=== PATIENT | male | born 1990 | race Caucasian/White ===

== ENCOUNTER 2020-07-24 08:19 | Emergency (ER) | payer BC, OTHER ==
[2020-07-24] MEDS ORDERED: Sodium Chloride 0.9% 10 ML Syringe FLUSH PRN (08:41)
[2020-07-24] MEDS ORDERED: Sodium Chloride 0.9% 2.5 ML Syringe FLUSH PRN ×2 (08:41)
[2020-07-24] MEDS ORDERED: Famotidine 20 MG/2 ML SDV IVPUSH ONE (08:41)
[2020-07-24] MEDS ORDERED: Sodium Chloride 0.9% 1,000 ML IV ONE (08:41)
[2020-07-24] MEDS ORDERED: Ondansetron 4 MG/2 ML SDV IVPUSH ONE (08:41)
--- NOTE | 2020-07-24 08:44 | EDM.PDOC ---
ED HPI GENERAL MEDICAL PROBLEM - General Chief Complaint: Abdominal Pain Stated Complaint: STOMACH PAIN Time Seen by Provider: 07/24/20 08:27 - History of Present Illness INITIAL COMMENTS - FREE TEXT/NARRATIVE: History of present illness: Patient presents with generalized abdominal discomfort fatigue and diarrhea for the past several days he had multiple mucousy and liquid bowel movements last night he denies any nausea or vomiting no fever no chills no cough no trouble breathing he denies any recent travel or recent antibiotic use he did have a vasectomy 7 days ago at a local surgery center. Review of systems: As per history of present illness and below otherwise all systems reviewed and negative. Past medical history: As per history of present illness and as reviewed below otherwise noncontributory. Surgical history: As per history of present illness and as reviewed below otherwise noncontributory. Social history: No reported history of drug or alcohol abuse. Family history: As per history of present illness and as reviewed below otherwise noncontributory. Physical exam: HEENT: Atraumatic, normocephalic, pupils reactive, negative for conjunctival pallor or scleral icterus, mucous membranes moist, throat clear, neck supple, nontender, trachea midline. Lungs: Clear to auscultation, breath sounds equal bilaterally, chest nontender. Heart: S1S2, regular, negative for clicks, rubs, or JVD. Abdomen: Soft, mild distention, mild diffuse tenderness without rebound or guarding. Negative for masses or hepatosplenomegaly. Negative for costovertebral tenderness. Pelvis: Stable nontender. Genitourinary: Deferred. Rectal: Deferred. Extremities: Atraumatic, negative for cords or calf pain. Neurovascular unremarkable. Neuro: Awake, alert, oriented. Cranial nerves II through XII unremarkable. Cerebellum unremarkable. Motor and sensory unremarkable throughout. Exam nonfocal. Diagnostics: [] Therapeutics: [] Impression: Patient have symptoms concerning for COVID disease will check for COVID will give fluids check abdominal labs give him some Zofran and Pepcid and reassess the patient. [] Plan: [] Definitive disposition and diagnosis as appropriate pending reevaluation and review of above. Right Upper Abdomen Pain Score (Numeric/FACES): 6 - Related Data Allergies Allergy/AdvReac Type Severity Reaction Status Date / Time No Known Allergies Allergy Verified 07/24/20 08:29 Home Meds: Home Meds Dicyclomine [Bentyl] 20 mg PO QIDACANDBED #30 tab 07/24/20 [Rx] Ondansetron [Zofran ODT] 4 mg PO Q6H PRN 5 Days #12 tab.dis 07/24/20 [Rx] metroNIDAZOLE [Flagyl] 500 mg PO TID #30 tablet 07/24/20 [Rx] Past Medical History Respiratory History: Reports: Asthma - Infectious Disease History Infectious Disease History: Reports: None - Past Surgical History Male Surgical History: Reports: Vasectomy Social & Family History - Family History Family Medical History: Noncontributory - Tobacco Use Smoking Status *Q: Never Smoker - Caffeine Use Caffeine Use: Reports: Soda - Recreational Drug Use Recreational Drug Use: No ED ROS GENERAL - Review of Systems Review Of Systems: See Below ED EXAM, GENERAL - Physical Exam Exam: See Below Course - Vital Signs Last Recorded V/S: Last Vital Signs Temp 35.9 C L 07/24/20 10:39 Pulse 58 L 07/24/20 10:39 Resp 13 07/24/20 10:39 BP 128/80 07/24/20 10:39 Pulse Ox 98 07/24/20 10:39 - Orders/Labs/Meds Orders: Active Orders 24 hr Category Date Time Status Sodium Chloride 0.9% [Saline Flush] Med 07/24/20 08:41 Active 10 ml FLUSH ASDIRECTED PRN Sodium Chloride 0.9% [Saline Flush] Med 07/24/20 08:41 Active 2.5 ml FLUSH ASDIRECTED PRN Sodium Chloride 0.9% [Saline Flush] Med 07/24/20 08:41 Active 2.5 ml FLUSH ASDIRECTED PRN Saline Lock Insert [OM.PC] Stat Oth 07/24/20 08:41 Ordered Medication Orders Sodium Chloride (Saline Flush) 2.5 ml FLUSH ASDIRECTED PRN PRN Reason: Keep Vein Open Last Admin: 07/24/20 08:49 Dose: 2.5 ml Documented by: VIALMEL Sodium Chloride (Saline Flush) 2.5 ml FLUSH ASDIRECTED PRN PRN Reason: Keep Vein Open Last Admin: 07/24/20 08:49 Dose: 2.5 ml Documented by: VIALMEL Sodium Chloride (Saline Flush) 10 ml FLUSH ASDIRECTED PRN PRN Reason: Keep Vein Open Last Admin: 07/24/20 08:49 Dose: 10 ml Documented by: CATHY Labs: Laboratory Tests 07/24/20 07/24/20 07/24/20 Range/Units 08:30 08:30 08:40 WBC 8.12 (4.0-11.0) K/uL RBC 5.24 (4.50-5.90) M/uL Hgb 15.6 (13.0-17.0) g/dL Hct 45.7 (38.0-50.0) % MCV 87.2 (80.0-98.0) fL MCH 29.8 (27.0-32.0) pg MCHC 34.1 (31.0-37.0) g/dL RDW Std Deviation 41.1 (28.0-62.0) fl RDW Coeff of Sola 13 (11.0-15.0) % Plt Count 183 (150-400) K/uL MPV 10.50 (7.40-12.00) fL Neut % (Auto) 77.4 (48.0-80.0) % Lymph % (Auto) 12.6 L (16.0-40.0) % [place] % (Auto) 8.9 (0.0-15.0) % Eos % (Auto) 1.0 (0.0-7.0) % Baso % (Auto) 0.1 (0.0-1.5) % Neut # (Auto) 6.3 H (1.4-5.7) K/uL Lymph # (Auto) 1.0 (0.6-2.4) K/uL [place] # (Auto) 0.7 (0.0-0.8) K/uL Eos # (Auto) 0.1 (0.0-0.7) K/uL Baso # (Auto) 0.0 (0.0-0.1) K/uL Nucleated RBC % 0.0 /100WBC Nucleated RBCs # 0 K/uL Sodium 139 (136-148) mmol/L Potassium 3.9 (3.5-5.1) mmol/L Chloride 103 (98-107) mmol/L Carbon Dioxide 27.5 (21.0-32.0) mmol/L BUN 13 (7.0-18.0) mg/dL Creatinine 1.2 (0.8-1.3) mg/dL Est Cr Clr Drug Dosing 88.38 mL/min Estimated GFR (MDRD) > 60.0 ml/min Glucose 92 (74-106) mg/dL Calcium 9.2 (8.5-10.1) mg/dL Total Bilirubin 0.5 (0.2-1.0) mg/dL AST 14 L (15-37) IU/L ALT 22 (14-63) IU/L Alkaline Phosphatase 72 (46-116) U/L Total Protein 7.6 (6.4-8.2) g/dL Albumin 4.0 (3.4-5.0) g/dL Globulin 3.6 (2.6-4.0) g/dL Albumin/Globulin Ratio 1.1 (0.9-1.6) Lipase 120 (73-393) U/L Urine Color YELLOW Urine Appearance CLEAR Urine pH 6.0 (5.0-8.0) Ur Specific [place] 1.025 (1.001-1.035) Urine Protein NEGATIVE (NEGATIVE) mg/dL Urine Glucose (UA) NEGATIVE (NEGATIVE) mg/dL Urine Ketones 15 H (NEGATIVE) mg/dL Urine Occult Blood TRACE-INTACT H (NEGATIVE) Urine Nitrite NEGATIVE (NEGATIVE) Urine Bilirubin SMALL H (NEGATIVE) Urine Urobilinogen 0.2 (<2.0) EU/dL Ur Leukocyte Esterase NEGATIVE (NEGATIVE) Urine RBC 0-2 (0-2/HPF) Urine WBC 0-1 (0-5/HPF) Ur Epithelial Cells RARE (NONE-FEW) Urine Bacteria RARE (NEGATIVE) COVID-19 (GEORGE) (NEGATIVE) 07/24/20 Range/Units 08:55 WBC (4.0-11.0) K/uL RBC (4.50-5.90) M/uL Hgb (13.0-17.0) g/dL Hct (38.0-50.0) % MCV (80.0-98.0) fL MCH (27.0-32.0) pg MCHC (31.0-37.0) g/dL RDW Std Deviation (28.0-62.0) fl RDW Coeff of Sola (11.0-15.0) % Plt Count (150-400) K/uL MPV (7.40-12.00) fL Neut % (Auto) (48.0-80.0) % Lymph % (Auto) (16.0-40.0) % [place] % (Auto) (0.0-15.0) % Eos % (Auto) (0.0-7.0) % Baso % (Auto) (0.0-1.5) % Neut # (Auto) (1.4-5.7) K/uL Lymph # (Auto) (0.6-2.4) K/uL [place] # (Auto) (0.0-0.8) K/uL Eos # (Auto) (0.0-0.7) K/uL Baso # (Auto) (0.0-0.1) K/uL Nucleated RBC % /100WBC Nucleated RBCs # K/uL Sodium (136-148) mmol/L Potassium (3.5-5.1) mmol/L Chloride (98-107) mmol/L Carbon Dioxide (21.0-32.0) mmol/L BUN (7.0-18.0) mg/dL Creatinine (0.8-1.3) mg/dL Est Cr Clr Drug Dosing mL/min Estimated GFR (MDRD) ml/min Glucose (74-106) mg/dL Calcium (8.5-10.1) mg/dL Total Bilirubin (0.2-1.0) mg/dL AST (15-37) IU/L ALT (14-63) IU/L Alkaline Phosphatase (46-116) U/L Total Protein (6.4-8.2) g/dL Albumin (3.4-5.0) g/dL Globulin (2.6-4.0) g/dL Albumin/Globulin Ratio (0.9-1.6) Lipase (73-393) U/L Urine Color Urine Appearance Urine pH (5.0-8.0) Ur Specific [place] (1.001-1.035) Urine Protein (NEGATIVE) mg/dL Urine Glucose (UA) (NEGATIVE) mg/dL Urine Ketones (NEGATIVE) mg/dL Urine Occult Blood (NEGATIVE) Urine Nitrite (NEGATIVE) Urine Bilirubin (NEGATIVE) Urine Urobilinogen (<2.0) EU/dL Ur Leukocyte Esterase (NEGATIVE) Urine RBC (0-2/HPF) Urine WBC (0-5/HPF) Ur Epithelial Cells (NONE-FEW) Urine Bacteria (NEGATIVE) COVID-19 (GEORGE) NEGATIVE (NEGATIVE) Meds: Medications Generic Name Dose Route Start Last Admin Trade Name Freq PRN Reason Stop Dose Admin Sodium Chloride 2.5 ml 07/24/20 08:41 07/24/20 08:49 Saline Flush FLUSH 2.5 ml ASDIRECTED PRN Administration Keep Vein Open Sodium Chloride 2.5 ml 07/24/20 08:41 07/24/20 08:49 Saline Flush FLUSH 2.5 ml ASDIRECTED PRN Administration Keep Vein Open Sodium Chloride 10 ml 07/24/20 08:41 07/24/20 08:49 Saline Flush FLUSH 10 ml ASDIRECTED PRN Administration Keep Vein Open Discontinued Medications Generic Name Dose Route Start Last Admin Trade Name Muna PRN Reason Stop Dose Admin Famotidine 20 mg 07/24/20 08:41 07/24/20 08:48 Pepcid IVPUSH 07/24/20 08:42 20 mg ONETIME ONE Administration Sodium Chloride 1,000 mls @ 999 mls/hr 07/24/20 08:41 07/24/20 08:48 Normal Saline IV 07/24/20 09:41 999 mls/hr BOLUS ONE Administration Ondansetron HCl 4 mg 07/24/20 08:41 07/24/20 08:48 Zofran IVPUSH 07/24/20 08:42 4 mg ONETIME ONE Administration Departure - Departure Time of Disposition: 10:49 Disposition: Home, Self-Care 01 Condition: Good Clinical Impression: Colitis - Discharge Information *PRESCRIPTION DRUG MONITORING PROGRAM REVIEWED*: Not Applicable *COPY OF PRESCRIPTION DRUG MONITORING REPORT IN PATIENT DERRICK: Not Applicable Prescriptions: Dicyclomine [Bentyl] 20 mg PO QIDACANDBED #30 tab metroNIDAZOLE [Flagyl] 500 mg PO TID #30 tablet Ondansetron [Zofran ODT] 4 mg PO Q6H PRN 5 Days #12 tab.dis PRN Reason: Nausea/Vomiting Instructions: Colitis Referrals: Cruzito Reynolds MD [Primary Care Provider] - Forms: ED Department Discharge Sepsis Event Note (ED) - Evaluation Sepsis Screening Result: No Definite Risk - Focused Exam Vital Signs: Vital Signs Temp Pulse Resp BP Pulse Ox 07/24/20 10:39 35.9 C L 58 L 13 128/80 98 07/24/20 09:32 60 12 136/78 99 07/24/20 08:30 36.4 C 67 14 142/89 H 99 - My Orders Last 24 Hours: My Active Orders 07/24/20 08:41 Sodium Chloride 0.9% [Saline Flush] 10 ml FLUSH ASDIRECTED PRN Sodium Chloride 0.9% [Saline Flush] 2.5 ml FLUSH ASDIRECTED PRN Sodium Chloride 0.9% [Saline Flush] 2.5 ml FLUSH ASDIRECTED PRN Saline Lock Insert [OM.PC] Stat - Assessment/Plan Last 24 Hours: My Active Orders 07/24/20 08:41 Sodium Chloride 0.9% [Saline Flush] 10 ml FLUSH ASDIRECTED PRN Sodium Chloride 0.9% [Saline Flush] 2.5 ml FLUSH ASDIRECTED PRN Sodium Chloride 0.9% [Saline Flush] 2.5 ml FLUSH ASDIRECTED PRN Saline Lock Insert [OM.PC] Stat
[2020-07-24 09:09] LABS: BLOOD UREA NITROGEN,BUN 13 mg/dL (7.0-18.0); CARBON DIOXIDE,CO2 27.5 mmol/L (21.0-32.0); CHLORIDE,CL 103 mmol/L (98-107); GLUCOSE RANDOM 92 mg/dL (74-106); LIPASE 120 U/L (73-393); POTASSIUM,K 3.9 mmol/L (3.5-5.1); SODIUM,NA 139 mmol/L (136-148)
--- NOTE | 2020-07-24 10:18 | CT ---
CT abdomen and pelvis Technique: Multiple axial sections were obtained from above the dome of the diaphragm inferiorly through the pubic symphysis. Intravenous contrast was utilized. No oral contrast has been given. Comparison: No prior abdominal imaging is available. Findings: Visualized lung bases show nothing acute. Liver shows minimal fat next to the ligamentum teres fissure which is a normal finding. Liver otherwise has a normal appearance. Spleen shows no discrete abnormality. Adrenal glands show no nodule. Kidneys show symmetric contrast enhancement without hydronephrosis or mass. Pancreas is within normal limits. Aorta shows no aneurysm. Gallbladder contains no calcified gallstones. No retroperitoneal adenopathy is seen. Diffuse bowel wall thickening seen throughout the colon. There is mild surrounding inflammatory change primarily around the right colon. Small amount of free fluid is seen within the pelvis. No pelvic adenopathy is seen. Appendix is seen which is normal in size. Bone window settings were reviewed which shows no acute osseous finding. Impression: 1. Diffuse bowel wall thickening throughout the colon compatible with diffuse colitis. Differential includes infection and inflammatory bowel disease. 2. No additional abnormality is appreciated on CT study of the abdomen and pelvis. Diagnostic code #5 This report was dictated in MDT
[2020-07-24] MEDS ORDERED: Iopamidol 755 Mg/ML 100 ML Bottle IVPUSH STA (11:01)
== END 2020-07-24 11:05 | disposition home or self-care (01) ==
LOC: MW.ED 08:19
DX: K52.9 Noninfective gastroenteritis and colitis, unspecified (principal); J45.909 Unspecified asthma, uncomplicated; Z20.828 Contact with and (suspected) exposure to other viral communicable diseases
CPT/HCPCS: 74177; 80053; 81001; 83690; 85025; 87635; 96361; 96374; 96375; 99284; J2405; J3490; J7030; Q9967; 99282; U0002

== ENCOUNTER 2021-07-14 10:03 | Emergency (ER) | payer BC ==
[2021-07-14] MEDS ORDERED: Ketorolac 15 MG/ML SDV IM ONE (10:12)
--- NOTE | 2021-07-14 10:49 | CR ---
INDICATION: Fall. TECHNIQUE: Lumbar spine 2 view. COMPARISON: None FINDINGS: Bones: Alignment is normal. No fractures or significant bone lesions. Joints: Disc spaces and facets are unremarkable. Soft tissues: Unremarkable. IMPRESSION: There is no fracture or malalignment in the lumbar spine. Preservation of normal lumbar lordosis. Dictated by Daryl Don MD @ 07/14/2021 10:47:[address] Daryl Don @ Jul 14 2021 10:47AM
--- NOTE | 2021-07-14 11:07 | CR ---
HISTORY: Ankle pain. COMPARISON: None. TECHNIQUE: Left ankle, 3 views. FINDINGS: There is mild widening of the ankle mortise, with a fracture deformity involving the anterior aspect of the tibia on the lateral projection. There is also fragmentation present about the medial malleolus. The posterior malleolus on the lateral projection appears intact. CT of the left ankle/hindfoot is suggested for further assessment. Boehler`s angle is preserved. Subtalar and talonavicular joints are within normal limits. No radiopaque foreign body. Mineralization is normal. IMPRESSION: 1. An intra-articular fracture deformity of the left distal tibia is suspected, with associated widening of the ankle mortise. 2. CT is suggested for further assessment. Dictated by Daryl Don MD @ 07/14/2021 11:07:[address] Daryl Don @ Jul 14 2021 11:07AM
--- NOTE | 2021-07-14 11:16 | CR ---
Indication: Pain after fall from roof. Technique: 3 views left foot Comparison: Ankle radiographs from the same day Findings: A few fracture fragments are noted at the anterior inferior aspect of the tibia which are better evaluated on recent ankle radiographs. There is a small ankle joint effusion. There are no additional fractures identified in the foot itself. The joint spaces in the foot are preserved and there are no significant degenerative changes. No radiopaque foreign body. Impression: 1. Few fracture fragments from the distal aspect of tibia are better evaluated on concurrently acquired ankle radiographs. See separate report. 2. No additional fracture identified in the left foot. Dictated by Aniceto Awad MD @ 07/14/2021 11:14:[address] Aniceto Awad @ Jul 14 2021 11:14AM
--- NOTE | 2021-07-14 11:18 | CR ---
Indication: Pain after fall from roof Technique: Three views of left tibia/fibula Comparison: Left foot and left ankle radiographs from same day. Findings: There is soft tissue swelling about the ankle. A few fracture fragments are noted adjacent to the medial malleolus with adjacent soft tissue swelling. There is a linear fracture at that medial aspect of the distal fibula below the level of the syndesmosis which is better seen on the mortise view of the concurrently acquired ankle radiographs. A component of the ankle injury also involves the anterior aspect of the distal tibia. Above the level of the ankle. No additional fractures are identified. Normal alignment. Impression: 1. Ankle injury with fractures of the medial malleolus, distal anterior tibia, and likely distal and medial aspect of the fibula. These are better seen on concurrently acquired ankle radiographs. As noted in ankle radiograph report, recommend CT of the ankle for further evaluation. 2. No additional tibia/fibula injury above the level of the ankle. Dictated by Aniceto Awad MD @ 07/14/2021 11:18:[address] Aniceto Awad @ Jul 14 2021 11:18AM
--- NOTE | 2021-07-14 13:13 | CT ---
HISTORY: Pain and swelling. FINDINGS: The ankle was studied in the axial plane. Sagittal and coronal 2 dimensional reconstructions were then performed. There is a comminuted nondisplaced intra-articular fracture along the anterior rim of the distal tibial plafond. No significant step-off is noted. In addition there are multiple small irregularly shaped fragments of bone or mineralized material along the tip of the medial malleolus consistent with small chip or avulsion fractures. There is an intra-articular fracture of the superior and lateral corner of the talar dome. There is an ununited fragment which is by approximately 2.5 mm from the bed of the fracture as seen on image 54 of series 203. Greatest dimension of the fracture fragment is 10 mm from anterior to posterior. The bony irregularity and spurring is seen along the anterior aspect of the distal fibula without definite fracture line in this region. No findings for dislocation or subluxation. No soft tissue swelling seen about the ankle. IMPRESSION: Fractures involving the medial malleolus, anterior rim of the distal tibia and superior and lateral corner of the talar dome as discussed. Please note that all CT scans at this facility use dose modulation, iterative reconstruction, and/or weight-based dosing when appropriate to reduce radiation dose to as low as reasonably achievable. Dictated by Milan Haas MD @ 07/15/2021 8:19:[address] Milan Haas @ Jul 15 2021 8:19AM
[2021-07-14] MEDS ORDERED: Aspirin 81 MG Tab.Chew PO ONE (13:50)
--- NOTE | 2021-07-14 14:26 | EDM.PDOC ---
ED HPI GENERAL MEDICAL PROBLEM - General Chief Complaint: Trauma Stated Complaint: FELL OFF ROOF Time Seen by Provider: 07/14/21 10:09 - History of Present Illness INITIAL COMMENTS - FREE TEXT/NARRATIVE: CHIEF COMPLAINT(S): Fall HISTORY OF PRESENT ILLNESS: This is a 31-year-old man without any significant past medical history who presents to the emergency department as a trauma alert via walk-in triage with a chief complaint of fall. The patient states that he was working on a roof and fell approximately 20 feet onto his feet. He states he is currently experiencing left ankle and foot pain. He denies any numbness or tingling. He denies any head injury or loss of consciousness. He denies any urinary incontinence, bowel incontinence or saddle anesthesia. He has not yet taken any pain medication. He states that any pressure on his left foot hurts his left ankle. There are no relieving factors. He denies any chest pain, shortness of breath, abdominal pain, nausea or vomiting. He denies any other sy mptoms. He rates his pain a 10 out of 10 REVIEW OF SYSTEMS: Constitutional: Denies fever, chills. Eyes: Denies eye pain Ears, Nose, Mouth, & Throat: Denies earache Cardiovascular: Denies chest pain Respiratory: Denies shortness of breath Gastrointestinal: Denies bowel incontinence nausea, vomiting, diarrhea, hematochezia. Genitourinary: Denies hematuria urinary continence Skin:Denies a rash MSK: Positive for left ankle and foot pain Neurological: Denies blurred vision, numbness, tingling, weakness Psychiatric: Denies depression PAST MEDICAL HISTORY: As per history of present illness and as reviewed below otherwise noncontributory. SURGICAL HISTORY: As per history of present illness and as reviewed below otherwise noncontributory. SOCIAL HISTORY: As per history of present illness and as reviewed below otherwise noncontributory. FAMILY HISTORY: As per history of present illness and as reviewed below otherwise noncontributory. EXAMINATION OF ORGAN SYSTEMS/BODY AREAS: VITALS: Blood pressure was 117/78, heart rate 76, respiratory rate 18 with an oxygen saturation of 98% on room air. Temperature 36.1 GENERAL: The patient is well-nourished, well-developed, in no acute distress. HEAD, EARS, EYES, NOSE THROAT: Normocephalic, atraumatic. PERRL. EOM are intact. There was no facial bone tenderness. Ears were clear, no hemotympanum. Oropharynx is clear. No missing or chipped teeth. Neck was supple and nontender. C-collar was not in place. RESPIRATORY: No tachypnea. Equal breath sounds are heard bilaterally. Lungs clear to auscultation. CARDIOVASCULAR: Regular rate and rhythm. Heart sounds were normal. There is no S3, S4, murmur, rub. There is no chest wall tenderness. No crepitus. Radial and dorsalis pedis pulses were palpable and equal bilaterally. ABDOMEN: The abdomen was soft, nondistended, and nontender to palpation. There was no guarding or rebound tenderness. Bowel sounds were present throughout the abdomen and normal. Pelvis was stable and not tender to rock. SPINE: There is no cervical, thoracic or lumbar spine tenderness. Cervical spine was cleared clinically EXTREMITIES: Extremity examination revealed no deformity, however there is some swelling along the lateral left side of the foot and ankle. There is tenderness to the lateral malleolus. On the left side. Patient is moving all 4 extremities equally. Distal pulses palpable in bilterally. NEUROLOGICAL: Alert and oriented. On neurological examination Yogesh Coma Scale was 15. Facies were symmetrical. Strength was good in all extremities. Distal sensation is intact SKIN: Appropriately warm to touch. No rashes, or pallor. MEDICAL DECISION MAKING AND COURSE IN THE ED WITH INTERPRETATION/REVIEW OF DIAGNOSTIC STUDIES: This is a 31-year-old man without significant past medical history who presents to the emergency department after a accidental fall off a roof approximately 20 feet with left ankle pain and swelling. Immediately upon entering the resuscitation bay ATLS protocol was followed, the patient is disrobed, and placed on continuous cardiac monitoring as well as pulse oximetry. Patient tells me their name displaying a patent airway, breath sounds are equal bilaterally, and patient has palpable pulses in all 4 extremities. The patient does not have any gross deformities, and does not have any gross deficit. Upon exposure no further lesions are seen. Palpation of the cervical, thoracic, and lumbar spine reveals no tenderness. Cervical spine is cleared clinically. At this time I did discuss with patient that I would like to obtain the left foot, left ankle and left tib-fib x-ray. In addition I discussed that I would like to obtain a CT of the lumbar spine given that he landed on his feet and given the mechanism of injury we have to evaluate for spinal injury. He was amenable to obtaining x-rays of his left leg but refused to get a CT. Therefore we will get a lumbar spine x-ray. Provide the patient with Toradol for pain relief The radiological images were viewed by myself along with reading the report from the radiologist. Left ankle x-ray reveals an intra-articular fracture deformity of the left distal tibia with associated widening of the ankle mortise. Recommend CT. Left foot x-ray reveals a few fracture fragments in the distal aspect of the tibia no additional fracture of the left foot. Left tib-fib x-ray reveals ankle injury with fractures of the medial malleolus, distal tibia and likely distal and medial aspects of the fibula. Recommend CT for further evaluation. Lumbar spine x-ray does not reveal any acute fracture. After imaging I did discuss the results with the patient. I discussed him at this time I want to obtain an ankle CT. He was amenable to this plan. The radiological images were viewed by myself along with reading the report from the radiologist. CT the left ankle reveals fractures involving the medial malleolus, anterior rim of the distal tibia and superior and lateral corner of the talar dome. After imaging I did contact [facility] in [place] and spoke with Dr. Solomon who recommended placing the patient in a splint and having a follow-up tomorrow in the clinic in [place]. After contacting [facility] of note the patient and his /significant other were informed of the fracture. They did not want to follow-up in [place] therefore they wanted me to contact [facility] in [place] to speak with Dr. Schmitz. I did speak with his partner in [place] and they recommended placement of a splint, start the patient on aspirin and to make the patient n.p.o. and to follow-up in their clinic tomorrow morning at 9 AM. This was discussed with the patient. He was given strict return precautions. He was amenable discharge and had no further questions Posterior mold splint examination. After placement of the posterior mold the patient had distal capillary refill less than 2 seconds, distal sensation was intact and patient was able to wiggle all of his toes. Next DISPOSITION: The patient was discharged home in stable condition. The patient will follow up with [facility] in [facility] tomorrow PROCEDURES: None FINAL IMPRESSION(S)/DIAGNOSES: 1. Acute mechanical fall 2. Acute trimalleolar fracture Critical Care Procedure Note Authorized and performed by: Dany Lanza M.D. Critical Care Time: 36 minutes Due to a high probability of clinically significant, life threatening deterioration, the patient required my highest level of preparedness to intervene emergently and I personally spent this critical care time directly and personally managing the patient. This critical care time included obtaining a history, examining the patient, pulse oximetry; ordering and review of studies; arranging urgent treatment with development of a management plan; evaluation of a patients response to treatment; frequent assessment; and discussions with other providers. This critical care time was performed to assess and manage the high probability of imminent, life threatening deterioration that could result in multiorgan failure. It was exclusive of separate billable procedures and treating other patients. Please see MDM section and rest of the note for further information on patient assessment and treatment. Please see MDM section and rest of the note for further information on patient assessment and treatment. Dany Lanza M.D. Left Ankle Pain Score (Numeric/FACES): 8 - Related Data Allergies Allergy/AdvReac Type Severity Reaction Status Date / Time No Known Allergies Allergy Verified 07/14/21 10:09 Home Meds: Home Meds Hydrocodone/Acetaminophen [HYDROcodone-Acetaminophen 5-325 MG] 1 each PO Q6HR #10 tab 07/14/21 [Rx] Past Medical History - Past Health History Medical/Surgical History: Denies Medical/Surgical History Respiratory History: Reports: Asthma - Infectious Disease History Infectious Disease History: Reports: None - Past Surgical History Male Surgical History: Reports: Vasectomy Social & Family History - Family History Family Medical History: No Pertinent Family History - Tobacco Use Tobacco Use Status *Q: Never Tobacco User - Caffeine Use Caffeine Use: Reports: None - Recreational Drug Use Recreational Drug Use: No Review of Systems - Review of Systems Review Of Systems: See Below ED EXAM, GENERAL - Physical Exam Exam: See Below Course - Vital Signs Last Recorded V/S: Last Vital Signs Temp 36.7 C 07/14/21 13:18 Pulse 70 07/14/21 14:50 Resp 16 07/14/21 14:50 BP 145/89 H 07/14/21 14:50 Pulse Ox 96 07/14/21 14:50 - Orders/Labs/Meds Meds: Medications Discontinued Medications Generic Name Dose Route Start Last Admin Trade Name Muna PRN Reason Stop Dose Admin Aspirin 81 mg 07/14/21 13:50 07/14/21 14:05 Aspirin 81 Mg Tab.Chew PO 07/14/21 13:51 81 mg ONETIME ONE Administration Ketorolac Tromethamine 15 mg 07/14/21 10:12 07/14/21 10:22 Ketorolac 15 Mg/Ml Sdv IM 07/14/21 10:13 15 mg ONETIME ONE Administration Departure - Departure Time of Disposition: 14:24 Disposition: Home, Self-Care 01 Condition: Fair Clinical Impression: Trimalleolar fracture of ankle, closed - Discharge Information *PRESCRIPTION DRUG MONITORING PROGRAM REVIEWED*: No *COPY OF PRESCRIPTION DRUG MONITORING REPORT IN PATIENT DERRICK: No Prescriptions: Hydrocodone/Acetaminophen [HYDROcodone-Acetaminophen 5-325 MG] 1 each PO Q6HR #10 tab Instructions: Ankle Fracture, [id number] Referrals: PCP,None [Primary Care Provider] - Forms: ED Department Discharge Additional Instructions: You were evaluated today on an emergent basis. At this time you do have a fracture of your left ankle which will require surgical intervention as discussed with the bone and joint physician in [facility] named Dr. Alexandre. Dr. Alexandre is a partner of Dr. Schmitz. He recommend you ice your left ankle, keep it elevated as we discussed, take aspirin 81 mg daily, and do not eat after midnight tonight. He wants you to drive down to [place] and go to the clinic at 9 AM. You may require surgery tomorrow so please do not eat after midnight. Please use [place] every 6 hours for pain relief as prescribed. You may take an additional tablet of Tylenol once every 6 hours in addition to the 1 tablet of [place]. Please do not take any more Tylenol than this or extra [place] as you could overdose on Tylenol accidentally. In addition as discussed given the mechanism of her fall I did recommend a CT of your lower spine even though you did not have pain. You did not want the CT at the time and we did elect to do a x-ray which did not reveal anything abnormal. I would like you to monitor your symptoms and if you have worsening pain, decreased sensation or numbness near your rectum, urinating on yourself or defecating on yourself I would like you to return to the emergency department. Please use: Tylenol 500mg every 6 hours (DO NOT TAKE MORE THAN 4000mg in 1 day) Ice the area 20 minutes 4 times per day [facility] [address] [address] The patient is informed of any results of their evaluation and diagnostic workup and all questions are answered. They are given discharge instructions and return precautions. The patient is stable for discharge. The patient states they understand and agree with the plan and that they will return if their symptoms get worse or if they have any new concerns. The following information is given to patients seen in the emergency department who are being discharged to home. This information is to outline your options for follow-up care. We provide all patients seen in our emergency department with a follow-up referral. The need for follow-up, as well as the timing and circumstances, are variable depending upon the specifics of your emergency department visit. If you don't have a primary care physician on staff, we will provide you with a referral. We always advise you to contact your personal physician following an emergency department visit to inform them of the circumstance of the visit and for follow-up with them and/or the need for any referrals to a consulting specialist. The emergency department will also refer you to a specialist when appropriate. This referral assures that you have the opportunity for follow-up care with a specialist. All of these measure are taken in an effort to provide you with o ptimal care, which includes your follow-up. Under all circumstances we always encourage you to contact your private physician who remains a resource for coordinating your care. When calling for follow-up care, please make the office aware that this follow-up is from your recent emergency room visit. If for any reason you are refused follow-up, please contact the [facility] Emergency Department at and asked to speak to the emergency department charge nurse.
== END 2021-07-14 14:51 | disposition home or self-care (01) ==
LOC: MW.ED 10:03
DX: S82.852A Displaced trimalleolar fracture of left lower leg, initial encounter for closed fracture (principal); W13.2XXA Fall from, out of or through roof, initial encounter; Y99.0 Civilian activity done for income or pay
CPT/HCPCS: 72100; 73590; 73610; 73630; 73700; 96372; 99285; A9270; J1885; 99291